=== PATIENT | female | born 1955 | race Caucasian/White ===

== ENCOUNTER → 2023-08-09 | Emergency (ER) | payer MEDICARE, OTHER ==
--- OUTSIDE RECORDS SUMMARY | 2023-08-09 10:40 | XMS REPORT | Continuity of Care Document ---
Author Name Unknown Address [address] [place] [address] thconnect Address [address] [place] [address] [address] [place] [address] Care Team Providers Care Commercial Lawn Specialist Name Role Phone [email or web address]_S Attending Clinician Blossom Malcolm Attending Clinician [phone] [email or web address] Admitting Clinician Heath wen Payers Payer Name Policy Type Policy Number Effective Date Expirati on Date Source [facility] (MEDICARE REPLACEMENT HMO) [id number] 00:00:00 Encounters Start Date/Time End Date/Time Encounter Type Admission Type Attending Clinicians Care Facility Care Department Encounter ID Source 2023-03-04 00:00:00 2023-03-04 00:00:00 Outpatient [email or web address] [email or web address]_S PRIV PRIV [id number] [facility] 2023-02-06 13:30:00 2023-02-06 14:00:00 Care Coordinati on Non Billable Blossom Poll [id number] 2023-02-04 20:30:00 2023-02-04 21:00:00 Care OnDemand Blossom Poll [id number] [facility] 2023-02-02 17:00:00 2023-02-02 17:30:00 Care [employer] Blossom Olamide [id number] [facility] 2022-10-24 00:00:00 2022-10-24 00:00:00 Outpatient [facility] [id number] [facility] 2022-09-16 00:00:00 2022-09-16 00:00:00 Outpatient [facility] [id number] [facility]
[2023-08-09 11:26] LABS: Absolute Lymphocytes (CBC) 1.3 K/uL (0.7-4.9); Hematocrit 42.5 % (36.0-45.0); Lymphocytes % 22.6 % (15.3-44.8); MCV 85.5 fL (80-100); MPV 6.9 fL (7.6-11.3); Platelets 396 thou/uL (152-406); RBC Red Blood Cell Count 4.98 M/uL (3.86-4.86)
--- NOTE | 2023-08-09 11:41 | RAD REPORT ---
EXAM DESCRIPTION: RAD - Chest Single View - 08/09/2023 11:32 am CLINICAL HISTORY: uncontrolled htn COMPARISON: No comparisons FINDINGS: Lines: None. Lungs: No evidence of edema or pneumonia. Pleural: No significant pleural effusions or pneumothorax. Cardiac: The heart size is within normal limits. Mediastinum: Within normal limits. Bones: No acute fractures. Other: None IMPRESSION: No acute cardiopulmonary disease.
[2023-08-09 11:42] LABS: Troponin High Sensitivity 11.4 pg/mL (<58.9)
--- NOTE | 2023-08-09 12:01 | EDPHYS ---
Physician Documentation [facility] Name: Eugenie Pink Age: 68 yrs Sex: Female : 1955 Arrival Date: 08/09/2023 Time: 10:38 Bed 17 Private MD: ED Physician Joseph Shook HPI: 08/09 10:55 This 68 yrs old Female presents to ER via EMS with complaints of Blood Pressure Problem.kb 10:59 Patient is a 68-year-old female who presents for hypertension and headache. States she kb was seen by PCP on and her blood pressure was 160/90. PCP told her to keep a blood pressure log twice a day and follow back up so they could formulate a management plan. Patient states that her blood pressure has been high with each reading so she called EMS to make sure that her monitor was reading correctly. EMS recommended that she come to the ER. Patient states that she has had a headache for a while but is not sure how long her blood pressure has been high.. Historical: - Allergies: 10:41 No Known Allergies; bp - Home Meds: 10:41 None [Active]; bp - PMHx: 10:41 None; bp - Immunization history:: Adult Immunizations up to date. - Social history:: Smoking status: Patient denies any tobacco usage or history of. ROS: 10:55 Constitutional: Negative for fever, chills, and weight loss, kb 10:55 Neuro: Positive for headache, 10:55 All other systems are negative, Exam: 10:55 Constitutional: This is a well developed, well nourished patient who is awake, alert, kb and in no acute distress. Head/Face: Normocephalic, atraumatic. ENT: Moist Mucous membranes Cardiovascular: Regular rate Respiratory: Respirations even and unlabored. No increased work of breathing. Talking in full sentences Abdomen/GI: Soft, non-tender. No distention Skin: Warm, dry with normal turgor. Normal color. MS/ Extremity: Pulses equal, no cyanosis. Neurovascular intact. Full, normal range of motion. Neuro: Awake and alert, GCS 15, oriented to person, place, time, and situation. Moves all extremities. Normal gait. 11:02 ECG was reviewed by the Attending Physician. kb Vital Signs: 10:40 BP 229 / 140; Pulse 85; Resp 16; Temp 98; Pulse Ox 98% ; bp 11:39 BP 158 / 109; kb 12:04 BP 158 / 109; Pulse 83; Resp 21; Pulse Ox 97% ; bp MDM: 10:46 Patient medically screened. kb 10:55 Differential diagnosis: hypertensive crisis, Malignant HTN. Data reviewed: vital signs, kb nurses notes. Historians other than the Patient: EMS: [facility]. 11:59 Counseling: I had a detailed discussion with the patient and/or guardian regarding the kb historical points, exam findings, and any diagnostic results supporting the discharge/admit diagnosis, lab results, radiology results, the need for outpatient follow up, a family practitioner, to return to the emergency department if symptoms worsen or persist or if there are any questions or concerns that arise at home. 08/09 10:51 Order name: Basic Metabolic Panel; Complete Time: 11:42 kb 08/09 10:51 Order name: CBC with Diff; Complete Time: 11:37 kb 08/09 10:51 Order name: Troponin HS; Complete Time: 11:42 kb 08/09 10:51 Order name: XRAY Chest (1 view); Complete Time: 11:41 kb 08/09 10:51 Order name: EKG; Complete Time: 10:52 kb 08/09 10:51 Order name: Cardiac monitoring; Complete Time: 11:02 kb 08/09 10:51 Order name: EKG - Nurse/Tech; Complete Time: 11:02 kb 08/09 10:51 Order name: IV Saline Lock; Complete Time: 11:17 kb 08/09 10:51 Order name: Labs collected and sent; Complete Time: 11:17 kb 08/09 10:51 Order name: O2 Per Protocol; Complete Time: 11:09 kb 08/09 10:51 Order name: O2 Sat Monitoring; Complete Time: 11:08 kb EC:02 Rate is 82 beats/min. Rhythm is regular. QRS Artie is Normal. VT interval is normal at kb 136 msec. QRS interval is normal at 88 msec. QT interval is normal at 434 msec. Administered Medications: No medications were administered Disposition: 12:24 Co-signature as Attending Physician, Joseph Shook MD I reviewed the patient's care rt provided by the Advanced Practice Provider and agree with the diagnosis and treatment plan. Disposition Summary: 02/18/24 12:00 Discharge Ordered Notes: Location: Home kb Condition: Stable kb Diagnosis - Elevated blood-pressure reading, without diagnosis of hypertension kb Followup: kb - With: Emergency Department - When: As needed - Reason: Worsening of condition Followup: kb - With: Private Physician - When: 2 - 3 days - Reason: Recheck today's complaints, Continuance of care, Re-evaluation by your physician Discharge Instructions: - Discharge Summary Sheet kb - Hypertension, Adult, [id number] kb - Managing Your Hypertension kb Forms: - Medication Reconciliation Form kb - Thank You Letter kb - Antibiotic Education kb - Prescription Opioid Use kb - Patient Portal Instructions kb - Leadership Thank You Letter kb Signatures: Dispatcher [employer] EDJodi Ayala FNP-C FNP-Ruben Castillo RN RN bp Joseph Shook MD MD rt Corrections: (The following items were deleted from the chart) 12:00 12:00 Essential (primary) hypertension kb kb
--- NOTE | 2023-08-09 12:01 | ER ---
Nurse's Notes [facility] Name: Eugenie Pink Age: 68 yrs Sex: Female : 1955 Arrival Date: 08/09/2023 Time: 10:38 Bed 17 Private MD: Diagnosis: Elevated blood-pressure reading, without diagnosis of hypertension Presentation: 08/09 10:40 Chief complaint: EMS states: DIRECTED TO ER BY PCP FOR HTN, NO H/O HTN. Coronavirus bp screen: At this time, the client does not indicate any symptoms associated with coronavirus-19. Ebola Screen: No symptoms or risks identified at this time. Initial Sepsis Screen: Does the patient meet any 2 criteria? No. Patient's initial sepsis screen is negative. Does the patient have a suspected source of infection? No. Patient's initial sepsis screen is negative. Risk Assessment: Do you want to hurt yourself or someone else? Patient reports no desire to harm self or others. Onset of symptoms is unknown. 10:40 Method Of Arrival: EMS: [facility] bp 10:40 Acuity: KRISTA 3 bp Triage Assessment: 10:41 General: Appears in no apparent distress. comfortable, Behavior is calm, cooperative, bp appropriate for age. Pain: Denies pain. Neuro: Level of Consciousness is awake, alert, obeys commands, Oriented to Appropriate for age Powder Press Operator are equal bilaterally Moves all extremities. Full function Gait is steady, Speech is normal, Facial symmetry appears normal. Historical: - Allergies: 10:41 No Known Allergies; bp - Home Meds: 10:41 None [Active]; bp - PMHx: 10:41 None; bp - Immunization history:: Adult Immunizations up to date. - Social history:: Smoking status: Patient denies any tobacco usage or history of. Screenin:40 [facility] ED Fall Risk Assessment (Adult) History of falling in the last 3 months, bp including since admission No falls in past 3 months (0 pts). Abuse screen: Denies threats or abuse. Denies injuries from another. Nutritional screening: No deficits noted. Tuberculosis screening: No symptoms or risk factors identified. Assessment: 10:40 General: SEE TRIAGE NOTE. bp Vital Signs: 10:40 BP 229 / 140; Pulse 85; Resp 16; Temp 98; Pulse Ox 98% ; bp 11:39 BP 158 / 109; kb 12:04 BP 158 / 109; Pulse 83; Resp 21; Pulse Ox 97% ; bp ED Course: 10:40 Patient arrived in ED. bp 10:40 Patient has correct armband on for positive identification. bp 10:41 Triage completed. bp 10:41 Arm band placed on. bp 10:46 J[facility] Flynn [facility]-C [facility]. kb 10:46 Joseph Shook MD is Attending Physician. kb 11:08 Ruben Luis, RN is Primary Nurse. bp 11:16 Inserted saline lock: 22 gauge in right antecubital area, using aseptic technique. bp Blood collected. 11:34 XRAY Chest (1 view) In Process Unspecified. EDMS 12:22 No provider procedures requiring assistance completed. IV discontinued, intact, bp bleeding controlled, No redness/swelling at site. Pressure dressing applied. 12:23 Provided Education on: ED PROCESS. bp Administered Medications: No medications were administered Medication: 10:40 VIS not applicable for this client. bp Outcome: 12:00 Discharge ordered by MD. kb 12:22 Discharged to home ambulatory, bp 12:22 Condition: stable 12:22 Discharge instructions given to patient, Instructed on discharge instructions, follow up and referral plans. Demonstrated understanding of instructions, follow-up care, 12:23 Patient left the ED. bp Signatures: Dispatcher [employer] EDMS Jodi Flynn FNP-C FNP-Ruben Castillo, RN RN bp Corrections: (The following items were deleted from the chart) 11:08 10:40 Acuity: KRISTA 4 bp bp
[2023-08-09 12:45] VITALS: BP 158/109; TEMP 98; O2SAT 97
--- NOTE | 2023-08-10 10:56 | EKG ---
Test Date: 2023-08-09 Test Time: 10:59:00 Pre Parole Counseling Aide: AMANDEEP MEASUREMENT RESULTS: Intervals: Rate: 82 CA: 136 QRSD: 88 QT: 372 QTc: 434 [place]: P: 73 CA: 136 QRS: 39 T: 87 INTERPRETIVE STATEMENTS: Sinus rhythm with marked sinus arrhythmia Nonspecific ST and T wave abnormality Abnormal ECG No previous ECG available for comparison Electronically Signed On 08-10-23 10:55:21 CORE CUTTER by Lonnie Delacruz
== END ==
LOC: ER 10:38
DX: R03.0 Elevated blood-pressure reading, without diagnosis of hypertension (principal)
CPT/HCPCS: 36415; 71045; 80048; 84484; 85025; 93005